=== PATIENT | female | born 1985 | race African-American/Black ===

== ENCOUNTER 2021-03-28 01:23 | Inpatient (IN) | payer MEDICARE, MEDICAID ==
[~2021-03-28] VITALS: Ht 162.6 cm; Wt 110.0 kg
[2021-03-28] MEDS ORDERED: ONDANSETRON HCL 4 MG/2 ML VIAL IV ONE (02:00)
[2021-03-28] MEDS ORDERED: hydrALAZINE HCL 20 MG/ML VL IV ONE (02:00)
[2021-03-28] MEDS ORDERED: MORPHINE SULFATE 4 MG/ML SYR/VIAL IV ONE (02:00)
[2021-03-28 02:24] LABS: Basophils # (auto) 0.1 10 ^3/uL (0-0.2); Basophils % (auto) 0.4 % (0.0-2.0); Eosinophils # (auto) 0.1 10 ^3/uL (0-0.8); Eosinophils % (auto) 0.3 % (0.0-7.0)
[2021-03-28 02:26] LABS: Hematocrit 42.5 % (36.0-46.0); Lymphocytes % (auto) 13.8 % (10.0-50.0); Mean Corpuscular Hemoglobin 25.9 pg (28.0-32.0); Mean Corpuscular Hgb Conc. 32.9 g/dL (32.0-36.0); Mean Corpuscular Volume 78.6 fL (80.0-100.0); Monocytes % (auto) 4.6 % (0.0-12.0); Neutrophils # (auto) 17.6 10 ^3/uL (1.6-8.6); Neutrophils % (auto) 80.9 % (37.0-80.0); Nucleated Red Blood Cells % 0.2 %; Red Blood Cells 5.41 10^6/uL (4.0-5.20); Red Cell Distribution Width 16.6 % (11.8-14.3); White Blood Cell 21.8 10^3/uL (4.4-10.8)
[2021-03-28 03:08] LABS: Albumin 3.9 g/dL (3.4-5.0); Calcium 7.6 mg/dL (8.5-10.1); Magnesium 2.8 mg/dL (1.6-2.6)
[2021-03-28 03:13] LABS: BUN/Creatinine Ratio 5.1; Bilirubin, Total 0.3 mg/dL (0.2-1.0); Total Protein 8.6 g/dL (6.4-8.2)
[2021-03-28 03:14] LABS: INR 0.99 (0.9-1.15); Partial Thromboplastin Time 24.6 sec (23.6-33.0)
[2021-03-28 03:25] LABS: Potassium 2.8 mmol/L (3.5-5.1)
[2021-03-28] MEDS ORDERED: POTASSIUM EFFERVESENT TAB 25 MEQ PO ONE (03:45)
[2021-03-28] MEDS ORDERED: ONDANSETRON ODT 4 MG TAB PO ONE (03:45)
[2021-03-28] MEDS ORDERED: fentaNYL CITRATE 100 MCG/2 ML VL IM ONE (04:00)
[2021-03-28] MEDS ORDERED: ONDANSETRON HCL 4 MG/2 ML VIAL IM ONE (04:15)
[2021-03-28] MEDS ORDERED: PIPERACILLIN-TAZOB 3.375GM 100 ML IV ONE (06:00)
[2021-03-28] MEDS ORDERED: cloNIDine HCL 0.1 MG TAB PO ONE (06:15)
[2021-03-28 08:50] LABS: Urine Bacteria FEW /hpf (None Seen); Urine Blood TRACE /uL (Negative); Urine Mucus FEW (None Seen); Urine Specific Gravity 1.014 (1.001-1.035); Urine WBC 3 /hpf (0 - 5)
[2021-03-28] MEDS ORDERED: HYDROmorphone HCL 2 MG/ML VL IV ONE (09:00)
[2021-03-28] MEDS ORDERED: SODIUM CHLORIDE 0.9% 1,000 ML IV ONE ×2 (09:00)
[2021-03-28] MEDS ORDERED: LABETALOL HCL 5 MG/ML 4ML SYRINGE IV ONE ×2 (09:00→10:00)
[2021-03-28] MEDS ORDERED: LABETALOL HCL 5 MG/ML 4ML SYRINGE IV PRN ×2 (10:00→11:30)
[2021-03-28] MEDS ORDERED: POTASSIUM CHLORIDE 80 MEQ, LIDOCAINE 1% (LOCAL ANESTH.) 6 ML in SODIUM CHL 0.9% 500 ML IV ONE (10:00)
[2021-03-28] MEDS ORDERED: NITROGLYCERIN 0.4 MG SL TAB SL PRN ×2 (10:00→11:30)
[2021-03-28] MEDS ORDERED: MORPHINE SULFATE INJECTION 2 MG/ML SYRG IV PRN ×3 (10:00→11:30)
[2021-03-28] MEDS ORDERED: POTASSIUM CHL 20MEQ/100ML 100 ML IV ONE (10:15)
[2021-03-28] MEDS ORDERED: diphenhdrAMINE HCL 50 MG/1 ML VL IV ONE (10:30)
[2021-03-28] MEDS ORDERED: BUMETANIDE 2.5mg/10ml (0.25 mg/ml) INJ IV ONE (11:15)
[2021-03-28] MEDS ORDERED: LACTULOSE 20Gm/30ML SOLN PO PRN (11:15)
[2021-03-28] MEDS ORDERED: NIFEdipine ER 30 MG TAB PO ONE (11:15)
[2021-03-28] MEDS ORDERED: PANTOPRAZOLE 40 MG/10 ML VIAL INJ IV ONE (11:15)
[2021-03-28] MEDS ORDERED: PROMETHAZINE W/CODEINE 5 ML ORAL SYRUP PO PRN (11:30)
[2021-03-28] MEDS ORDERED: amLODIPine BESYLATE 5 MG TAB PO SCH (11:30)
[2021-03-28] MEDS ORDERED: DOCUSATE SOD 100 MG CAP PO PRN (11:30)
[2021-03-28] MEDS ORDERED: NTG 0.1MG/HR TOPICAL PATCH TD ONE (11:30)
[2021-03-28] MEDS ORDERED: ALUM & MAG HYDROX-SIMETH LIQ(MAALOX) 30 ML PO PRN (11:30)
[2021-03-28] MEDS ORDERED: ACETAMINOPHEN 325 MG TAB PO PRN (11:30)
[2021-03-28] MEDS ORDERED: METOCLOPRAMIDE HCL 5MG/ml INJ 2ml VIAL IV PRN (11:30)
[2021-03-28] MEDS ORDERED: HYDROcodone-ACET 5/325MG TAB PO PRN (11:30)
[2021-03-28] MEDS ORDERED: METOPROLOL TARTRATE 50 MG TAB PO SCH (11:30)
[2021-03-28] MEDS ORDERED: hydrALAZINE HCL 20 MG/ML VL IV PRN (11:30)
[2021-03-28] MEDS ORDERED: ISOSORBIDE DINITRATE 10 MG TAB PO SCH (12:00)
[2021-03-28 12:38] LABS: Magnesium 2.3 mg/dL (1.6-2.6)
[2021-03-28 12:42] LABS: Phosphorus 6.1 mg/dL (2.5-4.90)
[2021-03-28] MEDS ORDERED: AZTREONAM 1GM INJ 1 GM in D5W 5% 50 ML IV ONE (13:00)
[2021-03-28] MEDS ORDERED: CLINDAMYCIN 600MG IV 50 ML IV ONE (13:00)
[2021-03-28] MEDS: hydrALAZINE HCL 25 MG TAB PO SCH ×2 (14:35→21:40)
[2021-03-28] MEDS: SEVELAMER 800 MG TAB PO SCH ×2 (16:17→18:00)
[2021-03-28] MEDS: BUMETANIDE 2.5mg/10ml (0.25 mg/ml) INJ IV SCH (18:21)
[2021-03-28] MEDS: diphenhdrAMINE HCL 50 MG/1 ML VL IV PRN (18:22)
[2021-03-28] MEDS: HYDROmorphone HCL 2 MG/ML VL IV PRN ×2 (18:22→22:49)
[2021-03-28] MEDS: AZTREONAM 1GM INJ 0.5 GM in D5W 5% 50 ML IV SCH (21:00)
[2021-03-28] MEDS: ATORVASTATIN 20 MG TAB PO SCH (21:31)
[2021-03-28] MEDS: CARVEDILOL 12.5 MG TAB PO SCH (21:32)
[2021-03-28] MEDS: PANTOPRAZOLE 40 MG/10 ML VIAL INJ IV SCH (21:40)
[2021-03-28 21:52] LABS: Amphetamine Screen, Urine NEGATIVE (NEGATIVE); Barbiturate Scree,Urine NEGATIVE (NEGATIVE); Benzodiazephine Screen, Urine NEGATIVE (NEGATIVE); Cannabinoid Screen, Urine POSITIVE (NEGATIVE); Cocaine Screen, Urine NEGATIVE (NEGATIVE)
[2021-03-28 21:55] VITALS: BP 158/74
[2021-03-28 21:59] LABS: Opiate Scree,Urine NEGATIVE (NEGATIVE); Phencyclidine Screen, Urine POSITIVE (NEGATIVE)
[2021-03-28] MEDS: CLINDAMYCIN 600MG IV 50 ML IV SCH (22:35)
[2021-03-28] MEDS: PERITONEAL DIALYSIS 2.5% SOLN 2,000 ML IP SCH (23:18)
[2021-03-28] MEDS: LORazepam 0.5 MG TAB PO PRN (23:27)
[2021-03-29] MEDS: diphenhdrAMINE HCL 50 MG/1 ML VL IV PRN ×4 (00:43→18:35)
[2021-03-29] MEDS: PERITONEAL DIALYSIS 2.5% SOLN 2,000 ML IP SCH ×6 (02:38→22:30)
[2021-03-29] MEDS: HYDROmorphone HCL 2 MG/ML VL IV PRN ×5 (02:50→20:19)
[2021-03-29 05:14] VITALS: BP 150/93
[2021-03-29] MEDS: AZTREONAM 1GM INJ 0.5 GM in D5W 5% 50 ML IV SCH ×3 (05:23→22:53)
[2021-03-29] MEDS: CLINDAMYCIN 600MG IV 50 ML IV SCH ×2 (06:12→15:44)
[2021-03-29] MEDS: hydrALAZINE HCL 25 MG TAB PO SCH ×3 (06:13→22:55)
[2021-03-29] MEDS: BUMETANIDE 2.5mg/10ml (0.25 mg/ml) INJ IV SCH (06:14)
[2021-03-29 06:57] LABS: Basophils # (auto) 0 10 ^3/uL (0-0.2); Basophils % (auto) 0.3 % (0.0-2.0); Hemoglobin 10.5 g/dL (12.2-16.2); Lymphocytes # (auto) 3.5 10 ^3/uL (0.4-5.4); Nucleated Red Blood Cells % 0.1 %
[2021-03-29 06:59] LABS: Eosinophils # (auto) 0.3 10 ^3/uL (0-0.8); Eosinophils % (auto) 2.9 % (0.0-7.0); Hematocrit 33.3 % (36.0-46.0); Lymphocytes % (auto) 29.2 % (10.0-50.0); Mean Corpuscular Hemoglobin 25.4 pg (28.0-32.0); Mean Corpuscular Hgb Conc. 31.6 g/dL (32.0-36.0); Mean Corpuscular Volume 80.3 fL (80.0-100.0); Monocytes % (auto) 8.3 % (0.0-12.0); Neutrophils % (auto) 59.3 % (37.0-80.0); Red Blood Cells 4.15 10^6/uL (4.0-5.20); Red Cell Distribution Width 17.1 % (11.8-14.3); White Blood Cell 11.9 10^3/uL (4.4-10.8)
[2021-03-29 07:22] LABS: Potassium 3.5 mmol/L (3.5-5.1)
[2021-03-29 07:32] LABS: BUN/Creatinine Ratio 5.3; Bilirubin, Total 0.2 mg/dL (0.2-1.0); Total Protein 6.6 g/dL (6.4-8.2); Uric Acid 7.6 mg/dL (2.6-6.0)
[2021-03-29 08:00] VITALS: BP 155/95
[2021-03-29] MEDS: SEVELAMER 800 MG TAB PO SCH ×3 (09:39→18:21)
[2021-03-29] MEDS: PANTOPRAZOLE 40 MG/10 ML VIAL INJ IV SCH ×2 (09:39→22:53)
[2021-03-29] MEDS: ASPirin 81 mg TAB PO SCH (09:40)
[2021-03-29] MEDS: CARVEDILOL 12.5 MG TAB PO SCH ×2 (09:40→22:57)
[2021-03-29] MEDS: ISOSORBIDE MONONITRATE ER 60 MG TAB PO SCH (09:41)
[2021-03-29] MEDS: CLOPIDOGREL BISULFATE 75 MG TAB PO SCH (09:41)
[2021-03-29] MEDS: ENOXAPARIN SOD 30 MG/0.3 ML SYRINGE SC SCH (09:41)
[2021-03-29] MEDS: CALCITRIOL 0.25 MCG CAP PO SCH (09:41)
[2021-03-29] MEDS: NIFEdipine ER 30 MG TAB PO SCH (09:41)
[2021-03-29] MEDS ORDERED: OXYCODONE W/ ACETAMINOPHEN 5/325MG TABLET PO PRN (11:30)
[2021-03-29] MEDS ORDERED: CLON0.3T PO (11:34)
[2021-03-29] MEDS ORDERED: HYDR50TA15 PO (11:34)
[2021-03-29] MEDS ORDERED: HYDR2INJ IJ (11:34)
[2021-03-29] MEDS ORDERED: ASPI-325 PO (11:34)
[2021-03-29] MEDS ORDERED: NIFE90TA49 PO (11:34)
[2021-03-29] MEDS ORDERED: HYDR500C PO (11:34)
[2021-03-29] MEDS ORDERED: OXYC-963 (11:34)
[2021-03-29] MEDS ORDERED: CLOP75TA70 PO (11:34)
[2021-03-29 22:00] VITALS: BP 145/84
[2021-03-29] MEDS: ATORVASTATIN 20 MG TAB PO SCH (22:57)
[2021-03-30] MEDS: CLINDAMYCIN 600MG IV 50 ML IV SCH ×2 (00:21→06:48)
[2021-03-30] MEDS: diphenhdrAMINE HCL 50 MG/1 ML VL IV PRN ×2 (00:22→06:48)
[2021-03-30] MEDS: HYDROmorphone HCL 2 MG/ML VL IV PRN ×4 (00:23→12:44)
[2021-03-30] MEDS: LORazepam 0.5 MG TAB PO PRN ×2 (02:13→08:40)
[2021-03-30] MEDS: PERITONEAL DIALYSIS 2.5% SOLN 2,000 ML IP SCH ×3 (02:23→12:00)
[2021-03-30] MEDS: AZTREONAM 1GM INJ 0.5 GM in D5W 5% 50 ML IV SCH (04:35)
[2021-03-30 05:00] VITALS: BP 137/75
[2021-03-30] MEDS: hydrALAZINE HCL 25 MG TAB PO SCH (06:48)
[2021-03-30 08:00] VITALS: BP 144/86
[2021-03-30] MEDS: SEVELAMER 800 MG TAB PO SCH ×2 (08:40→12:41)
[2021-03-30 09:00] LABS: Hematocrit 34.6 % (36.0-46.0); Hemoglobin 11.1 g/dL (12.2-16.2); Mean Corpuscular Hemoglobin 25.6 pg (28.0-32.0); Red Blood Cells 4.33 10^6/uL (4.0-5.20); Red Cell Distribution Width 17.2 % (11.8-14.3); White Blood Cell 10.4 10^3/uL (4.4-10.8)
[2021-03-30 09:14] LABS: Band Neutrophils % (manual) 0; Basophils % (manual) 0 (0.0-2.0); Blast Cells 0; Metamyelocytes % 0; Myelocytes % 0; Promyelocytes % 0; Reactive Lymphocytes 0
[2021-03-30 09:21] LABS: BUN/Creatinine Ratio 4.5; Calcium 7.6 mg/dL (8.5-10.1); Potassium 3.7 mmol/L (3.5-5.1)
[2021-03-30 10:33] LABS: Eosinophils % (manual) 11 (0-7); Lymphocytes % (manual) 28 (10.0-50.0); Monocytes % (manual) 5 (0-12)
[2021-03-30] MEDS: CARVEDILOL 12.5 MG TAB PO SCH (10:42)
[2021-03-30] MEDS: CLOPIDOGREL BISULFATE 75 MG TAB PO SCH (10:42)
[2021-03-30] MEDS: ASPirin 81 mg TAB PO SCH (10:42)
[2021-03-30] MEDS: CALCITRIOL 0.25 MCG CAP PO SCH (10:43)
[2021-03-30] MEDS: ISOSORBIDE MONONITRATE ER 60 MG TAB PO SCH (10:44)
[2021-03-30] MEDS: NIFEdipine ER 30 MG TAB PO SCH (10:45)
[2021-03-30] MEDS: PANTOPRAZOLE 40 MG/10 ML VIAL INJ IV SCH (10:46)
[2021-03-30] MEDS: ENOXAPARIN SOD 30 MG/0.3 ML SYRINGE SC SCH (10:48)
[2021-03-30 14:00] VITALS: BP 163/82
== END 2021-03-30 14:30 | disposition home or self-care (01) | DRG 871 ==
LOC: ER 01:23 → TELE 10:00 → TELE-WESTW 17:47
PROVIDERS: ADMIT Hospitalist; ATTEND Internal Medicine
PROC: 05HF33Z Insertion of Infusion Device into Left Cephalic Vein, Percutaneous Approach (ICD-10-PCS; principal; 2021-03-28)
PROC: B54NZZA Ultrasonography of Left Upper Extremity Veins, Guidance (ICD-10-PCS; 2021-03-28)
DX: A41.9 Sepsis, unspecified organism (principal); D57.00 Hb-SS disease with crisis, unspecified; N18.6 End stage renal disease; J18.9 Pneumonia, unspecified organism; I16.1 Hypertensive emergency; N39.0 Urinary tract infection, site not specified; I13.2 Hypertensive heart and chronic kidney disease with heart failure and with stage 5 chronic kidney disease, or end stage renal disease; I50.42 Chronic combined systolic (congestive) and diastolic (congestive) heart failure; I25.10 Atherosclerotic heart disease of native coronary artery without angina pectoris; I25.5 Ischemic cardiomyopathy; E87.6 Hypokalemia; Z20.822 Contact with and (suspected) exposure to COVID-19; E66.01 Morbid (severe) obesity due to excess calories; G89.29 Other chronic pain; Z99.2 Dependence on renal dialysis; Z91.19 Patient's noncompliance with other medical treatment and regimen; Z95.5 Presence of coronary angioplasty implant and graft; Z88.8 Allergy status to other drugs, medicaments and biological substances
CPT/HCPCS: 36415; 71045; 80048; 80053; 80307; 81001; 82306; 82728; 83021; 83036; 83735; 83880; 83970; 84100; 84443; 84484; 84550; 85007; 85025; 85027; 85045; 85379; 85610; 85660; 85730; 87040; 87086; 87426; 93005; 93306; 96365; 96367; 96372; 96375; 96376; C9113; G0378; J2001; J2405; J2543; J3490; J7060; Q0162

== ENCOUNTER 2021-07-30 20:36 | Inpatient (IN) | payer MEDICARE, MEDICAID ==
[~2021-07-30] VITALS: Ht 162.6 cm; Wt 98.6 kg
[~2021-07-30 20:36] MED LIST: ASPI-325 PO; CLON0.3T PO; CLOP75TA70 PO; HYDR2INJ IJ; HYDR500C PO; HYDR50TA15 PO; NIFE90TA49 PO; OXYC-963
[2021-07-30] MEDS ORDERED: HYDROmorphone HCL 2 MG/ML VL IM ONE (22:30)
[2021-07-30 23:35] LABS: Basophils # (auto) 0 10 ^3/uL (0-0.2); Basophils % (auto) 0.1 % (0.0-2.0); Eosinophils # (auto) 0.2 10 ^3/uL (0-0.8); Eosinophils % (auto) 1.1 % (0.0-7.0); Hemoglobin 13.5 g/dL (12.2-16.2); Lymphocytes # (auto) 1.2 10 ^3/uL (0.4-5.4); Lymphocytes % (auto) 8.8 % (10.0-50.0); Mean Corpuscular Hemoglobin 28.1 pg (28.0-32.0); Mean Corpuscular Volume 85.1 fL (80.0-100.0); Monocytes # (auto) 0.7 10 ^3/uL (0-1.3); Monocytes % (auto) 5.2 % (0.0-12.0); Neutrophils # (auto) 11.6 10 ^3/uL (1.6-8.6); Neutrophils % (auto) 84.8 % (37.0-80.0); Red Blood Cells 4.81 10^6/uL (4.0-5.20); Red Cell Distribution Width 14.8 % (11.8-14.3); White Blood Cell 13.7 10^3/uL (4.4-10.8)
[2021-07-30 23:52] LABS: Albumin 2.6 g/dL (3.4-5.0); Calcium 7.9 mg/dL (8.5-10.1); Potassium 4.1 mmol/L (3.5-5.1)
[2021-07-30 23:57] LABS: BUN/Creatinine Ratio 7.4; Bilirubin, Total 0.3 mg/dL (0.2-1.0); Total Protein 6.5 g/dL (6.4-8.2)
[2021-07-31] VITALS (19 sets, daily range): BP systolic 118–188; BP diastolic 72–106
[2021-07-31] MEDS ORDERED: ONDANSETRON ODT 4 MG TAB PO ONE
[2021-07-31] MEDS ORDERED: cloNIDine HCL 0.1 MG TAB ONE (00:20)
[2021-07-31] MEDS ORDERED: cloNIDine HCL 0.1 MG TAB PO ONE (00:30)
[2021-07-31] MEDS ORDERED: HYDROmorphone HCL 2 MG/ML VL IM ONE (02:00)
[2021-07-31] MEDS ORDERED: DOCUSATE SOD 100 MG CAP PO PRN (02:45)
[2021-07-31] MEDS ORDERED: NITROGLYCERIN 0.4 MG SL TAB SL PRN (02:45)
[2021-07-31] MEDS ORDERED: SODIUM CHLORIDE 0.9% 500 ML IV ONE (02:45)
[2021-07-31] MEDS: hydrALAZINE HCL 25 MG TAB PO SCH ×3 (05:50→21:11)
[2021-07-31] MEDS: cloNIDine HCL 0.1 MG TAB PO SCH ×3 (05:51→21:11)
[2021-07-31] MEDS: HYDROmorphone HCL 2 MG/ML VL IV PRN ×5 (05:52→22:28)
[2021-07-31] MEDS: SODIUM CHLOR 0.9% PF (SALINE LOCK) 10ML VIAL/SYR IV SCH ×3 (06:21→21:10)
[2021-07-31] MEDS ORDERED: ASPirin-EC 81 mg tab PO SCH (10:00)
[2021-07-31] MEDS ORDERED: CLOPIDOGREL BISULFATE 75 MG TAB PO SCH (10:00)
[2021-07-31] MEDS ORDERED: NIFEdipine ER 30 MG TAB PO SCH (10:00)
[2021-07-31] MEDS: ONDANSETRON HCL 4 MG/2 ML VIAL IV PRN ×3 (10:07→18:07)
[2021-07-31] MEDS: CLOPIDOGREL BISULFATE 75 MG TAB PO SCH (10:43)
[2021-07-31] MEDS: ASPirin-EC 81 mg tab PO SCH (10:43)
[2021-07-31] MEDS: hydroxyUREA 500 MG CAP PO SCH (10:43)
[2021-07-31] MEDS: diphenhdrAMINE HCL 50 MG/1 ML VL IV PRN ×2 (14:43→23:22)
[2021-07-31] MEDS: NIFEdipine ER 30 MG TAB PO SCH (15:38)
[2021-08-01] MEDS: HYDROmorphone HCL 2 MG/ML VL IV PRN ×5 (03:49→19:52)
[2021-08-01 05:00] VITALS: BP 152/86
[2021-08-01] MEDS: SODIUM CHLOR 0.9% PF (SALINE LOCK) 10ML VIAL/SYR IV SCH ×3 (05:06→21:51)
[2021-08-01] MEDS: hydrALAZINE HCL 25 MG TAB PO SCH ×3 (05:07→21:52)
[2021-08-01] MEDS: cloNIDine HCL 0.1 MG TAB PO SCH ×3 (05:07→21:52)
[2021-08-01] MEDS ORDERED: HYDROmorphone HCL 2 MG/ML VL IV ONE (05:30)
[2021-08-01] MEDS: diphenhdrAMINE HCL 50 MG/1 ML VL IV PRN ×2 (08:22→16:15)
[2021-08-01] MEDS: hydroxyUREA 500 MG CAP PO SCH (08:28)
[2021-08-01] MEDS: CLOPIDOGREL BISULFATE 75 MG TAB PO SCH (08:28)
[2021-08-01] MEDS: ASPirin-EC 81 mg tab PO SCH (08:28)
[2021-08-01 09:00] VITALS: BP 158/95
[2021-08-01 12:36] VITALS: BP 162/97
[2021-08-01] MEDS ORDERED: MINOXIDIL 2.5 MG TAB PO ONE (13:00)
[2021-08-01] MEDS: NIFEdipine ER 30 MG TAB PO SCH (13:13)
[2021-08-01 17:00] VITALS: BP 175/98
[2021-08-01 21:43] VITALS: BP 128/81
[2021-08-01] MEDS: PERITONEAL DIALYSIS 2.5% SOLN 2,000 ML IP SCH (21:53)
[2021-08-02] MEDS: HYDROmorphone HCL 2 MG/ML VL IV PRN ×5 (00:09→13:59)
[2021-08-02] MEDS: diphenhdrAMINE HCL 50 MG/1 ML VL IV PRN ×2 (00:19→08:37)
[2021-08-02] MEDS: PERITONEAL DIALYSIS 2.5% SOLN 2,000 ML IP SCH ×4 (04:12→12:00)
[2021-08-02 05:00] VITALS: BP 137/80
[2021-08-02] MEDS: SODIUM CHLOR 0.9% PF (SALINE LOCK) 10ML VIAL/SYR IV SCH ×2 (05:42→14:00)
[2021-08-02] MEDS: hydrALAZINE HCL 25 MG TAB PO SCH ×2 (06:12→14:24)
[2021-08-02] MEDS: cloNIDine HCL 0.1 MG TAB PO SCH ×2 (06:12→14:24)
[2021-08-02 06:13] LABS: Calcium 7.7 mg/dL (8.5-10.1); Potassium 4.4 mmol/L (3.5-5.1)
[2021-08-02 06:15] LABS: BUN/Creatinine Ratio 8.8
[2021-08-02 09:00] VITALS: BP 143/83
[2021-08-02] MEDS: hydroxyUREA 500 MG CAP PO SCH (09:44)
[2021-08-02] MEDS: ASPirin-EC 81 mg tab PO SCH (09:44)
[2021-08-02] MEDS: CLOPIDOGREL BISULFATE 75 MG TAB PO SCH (09:45)
[2021-08-02] MEDS ORDERED: MINOXIDIL 2.5 MG TAB PO SCH (10:00)
[2021-08-02] MEDS ORDERED: BACITRACIN TOP OINT 1 UD PKG TOP SCH (10:00)
[2021-08-02] MEDS: NIFEdipine ER 30 MG TAB PO SCH (10:37)
[2021-08-02 13:00] VITALS: BP 153/82
[2021-08-02 13:59] VITALS: BP 143/87
[2021-08-02] MEDS: ONDANSETRON HCL 4 MG/2 ML VIAL IV PRN (14:00)
== END 2021-08-02 16:00 | disposition home or self-care (01) | DRG 811 ==
LOC: ER 20:38 → OVERFLOW 07-31 02:36 → ICU WEST 07-31 09:09 → TELE-CENTR 07-31 19:55
PROVIDERS: ADMIT Internal Medicine; ATTEND Internal Medicine
PROC: 3E1M39Z Irrigation of Peritoneal Cavity using Dialysate, Percutaneous Approach (ICD-10-PCS; principal; 2021-08-01)
DX: D57.00 Hb-SS disease with crisis, unspecified (principal); N18.6 End stage renal disease; I13.2 Hypertensive heart and chronic kidney disease with heart failure and with stage 5 chronic kidney disease, or end stage renal disease; I16.0 Hypertensive urgency; Z20.822 Contact with and (suspected) exposure to COVID-19; I25.10 Atherosclerotic heart disease of native coronary artery without angina pectoris; E66.9 Obesity, unspecified; Z99.2 Dependence on renal dialysis; Z68.37 Body mass index [BMI] 37.0-37.9, adult; Z88.5 Allergy status to narcotic agent; Z88.8 Allergy status to other drugs, medicaments and biological substances; Z88.1 Allergy status to other antibiotic agents; Z91.041 Radiographic dye allergy status; Z71.3 Dietary counseling and surveillance; Z86.73 Personal history of transient ischemic attack (TIA), and cerebral infarction without residual deficits; I50.9 Heart failure, unspecified; Z98.61 Coronary angioplasty status
CPT/HCPCS: 36415; 71045; 80048; 80053; 82150; 83690; 84484; 85025; 85045; 87040; 87081; 93005; 96360; 96372; G0378; J2405; Q0162